=== PATIENT | female | born 1945 | race Caucasian/White ===

== ENCOUNTER → 2023-04-17 | Outpatient (CLI) | payer MEDICARE, OTHER ==
--- NOTE | 2023-04-17 17:09 | Diagnostic Imaging Report ---
INDICATION: Low back pain with sciatica Lumbar spine AP, lateral and oblique views of lumbar spine are obtained. There is narrowing of each of the intervertebral disc spaces with osteophytes forming along the anterior and posterior lateral margins of the vertebral body endplates. Alignment is normal. There are no compression fractures. IMPRESSION: Moderately severe spondylosis of the lumbar spine. There are 2 oval calcifications to the right of the spine that could be ureteral calculi versus gonadal vein phleboliths. Dictated by: Dictated on workstation # [id number]
== END ==
LOC: RAD 13:58
PROVIDERS: ATTEND Nurse Practitioner
DX: M47.816 Spondylosis without myelopathy or radiculopathy, lumbar region (principal)
CPT/HCPCS: 72110